=== PATIENT | female | born 1970 | race Native Hawaiian/Other Pacific Islander ===

== ENCOUNTER 2024-05-21 12:05 | Emergency (ER) | payer OTHER ==
[~2024-05-21] VITALS: Ht 165.1 cm; Wt 79.6 kg
[2024-05-21] MEDS: oseltamivir phos 75mg capsule PO ONE (14:46)
[2024-05-21] MEDS: acetaminophen 325mg tablet PO ONE (14:48)
[2024-05-21] MEDS: ketorolac trometh 15mg/ml vial 15 MG/ML ML IM ONE (14:48)
[2024-05-21] MEDS ORDERED: TAM75C PO (15:03)
[2024-05-21] MEDS ORDERED: ALBU18HF2 INH (15:03)
[2024-05-21] MEDS ORDERED: IBUP-1984 PO (15:03)
[2024-05-21 15:11] VITALS: BP 112/62; PULSE 92; RESP 18; TEMP 99.9; O2SAT 97
== END 2024-05-21 15:14 | disposition home or self-care (01) ==
LOC: ER 12:06
DX: J11.1 Influenza due to unidentified influenza virus with other respiratory manifestations (principal)
CPT/HCPCS: 87502; 87503; 96372; 99283; J1885

== ENCOUNTER 2024-07-20 10:28 | Emergency (ER) | payer BC, OTHER ==
[~2024-07-20] VITALS: Ht 165.1 cm; Wt 83.0 kg
[~2024-07-20 10:28] MED LIST: ALBU18HF2 INH
[2024-07-20 10:32] VITALS: TEMP 98.4
[2024-07-20 10:54] LABS: BASOPHILS % (AUTO) 0.4 % (0-1); EOSINOPHILS # (AUTO) 0.1 X10'3 (0-0.9); HEMATOCRIT 36.8 % (35.0-45.0); HEMOGLOBIN 12.6 g/dl (12.0-16.0); LYMPHOCYTES # (AUTO) 1.8 X10'3 (1.1-4.8); MEAN CORPUSCULAR HEMOGLOBIN 29.9 PG (27.0-31.0); MEAN CORPUSCULAR HGB CONC 34.3 g/dL (33.0-36.5); MEAN CORPUSCULAR VOLUME 87.2 FL (78-98); MEAN PLATELET VOLUME 6.6 FL (7.4-10.4); MONOCYTES # (AUTO) 0.3 X10'3 (0-0.9); MONOCYTES % (AUTO) 7.3 % (2-12); NEUTROPHILS # (AUTO) 2.1 X10'3 (1.8-7.7); NEUTROPHILS % (AUTO) 49.3 % (42-75); PLATELET COUNT 248 X10'3 (140-440); RED BLOOD COUNT 4.22 X10'6 (4.20-5.60); RED CELL DISTRIBUTION WIDTH 14.4 % (11.5-14.5); WHITE BLOOD COUNT 4.4 X10'3 (4.5-11.0)
[2024-07-20 11:07] LABS: ALANINE AMINOTRANSFERASE 22 U/L (12-78); ALBUMIN 3.4 G/DL (3.4-5.0); ALBUMIN/GLOBULIN RATIO 0.8 (1.1-1.5); ALKALINE PHOSPHATASE 71 IU/L (46-116); ANION GAP 8 (8-16); ASPARTATE AMINO TRANSFERASE 28 U/L (10-37); BILIRUBIN,TOTAL 0.2 MG/DL (0.1-1.0); BLOOD UREA NITROGEN 25 MG/DL (7-18); BUN/CREATININE RATIO 40.3 (10.0-20.0); CALCIUM 8.4 MG/DL (8.5-10.1); CHLORIDE 108 MMOL/L (99-107); CREATININE 0.62 MG/DL (0.40-0.90); GLUCOSE 98 MG/DL (70-104); POTASSIUM 4.1 MMOL/L (3.5-5.1); SODIUM 142 MMOL/L (135-145); TOTAL PROTEIN 7.6 G/DL (6.4-8.2); eCRCL 92 ML/MIN; eGFR > 90 ML/MIN
[2024-07-20 11:14] LABS: PRO BRAIN NATRIURETIC PEPTIDE < 30 PG/ML (0-125)
[2024-07-20 12:00] VITALS: BP 104/70; PULSE 56; O2SAT 98
[2024-07-20 12:12] VITALS: RESP 14
[2024-07-20] MEDS: ketorolac trometh 15mg/ml vial 15 MG/ML ML IM ONE (12:12)
== END 2024-07-20 12:14 | disposition home or self-care (01) ==
LOC: ER 10:28
DX: M54.10 Radiculopathy, site unspecified (principal); R06.00 Dyspnea, unspecified; Z79.899 Other long term (current) drug therapy
CPT/HCPCS: 36415; 71045; 80053; 83880; 84484; 85025; 93005; 96372; 99285; J1885

== ENCOUNTER 2024-09-08 14:12 | Emergency (ER) | payer MEDICAID ==
[~2024-09-08] VITALS: Ht 165.1 cm; Wt 89.8 kg
--- NOTE | 2024-09-08 14:33 | Physician Documentation ---
History of Present Illness ~ Chief Complaint: Cold, cough & congestion Stated Complaint: URI Time Seen by MD: 15:19 OK to notify your PCP?: Yes Source: patient Mode of Arrival: POV Exam Limitations: no limitations HPI 54-year-old female presenting for upper respiratory infection with cold cough and congestion. She had a productive cough while in triage. She was seen at [facility] this past Tuesday and diagnosed with a URI and given no prescription medications. She has been using TheraFlu and Tylenol at home and feels that she is getting worse. She noticed having right ear fullness which started about a week prior to her symptoms. Reports having painful chest and chest tightness. States she used to smoke cigarettes Medication Reconciliation Allergies: Coded Allergies: No Known Allergies (Unverified , 09/08/24) Scheduled Albuterol Sulfate (Ventolin Hfa), 2 PUFFS INH Q4HPRN Prednisone (Prednisone), 1 TAB PO BID Scheduled PRN albuterol inhaler (Pro-Air Inhaler), 2 PUFFS INH Q4HPRN PRN for wheezing Past Medical History Past Medical History: No Pertinent History Past Surgical History: no surgical history Drug Use: none Lives In: Home Review of Systems All Other Systems at this time: Reviewed and Negative Physical Exam Vital Signs: RN Vital Signs have been reviewed: Yes, Temperature: 97.6, Heart Rate: 59, Respiratory Rate: 16, BP: 118/74, Pulse Oximetry: 98, Weight: 89.800 Oxygen Flow Rate: 0 Physical Exam General: Alert, no apparent distress. HEENT: PERRL, EOMI, no injection, moist mucous membranes. Sinuses tender to palpation bilaterally. left TM clear, no erythema. Right TM is clear but bulging, no erythema. Neck: Full range of motion. Respiratory: Diminished lung sounds Chest: No accessory muscle use. Lungs clear to auscultation bilaterally. Cardiovascular: Regular rate and rhythm, no murmurs. Progress Results/Orders Results/Orders Orders - THUAN HARVEY NP Svn Treatment (09/08/24 ) Completed Orders - THUAN HARVEY PROSTHETIC AIDE Ipratropium/Albuterol Nebule (Ipratrop/A (09/08/24 15:45) Medications Received in ER Medications (Trade) Dose Ordered Sig/Nayeli Route PRN Reason Start Time Stop Time Status Last Admin Dose Admin (ipratrop/ albuterol 0.5-3(2.5) MG/3ml nebule) 3 ml ONCE ONCE NEB 09/08/24 15:45 09/08/24 15:46 DC 09/08/24 15:51 3 ML Vital Signs 09/08/24 09/08/24 09/08/24 09/08/24 14:18 15:52 15:57 16:05 Temp 97.6 Pulse 59 59 59 Resp 16 18 20 16 B/P (MAP) 118/74 Pulse Ox 98 95 99 O2 Delivery Room Air* Room Air* Room Air O2 Flow Rate 0 0 0 FiO2 21 21 09/08/24 16:07 Temp 97.6 Pulse 60 Resp 16 B/P (MAP) 122/65 Pulse Ox 98 Medical Decision Making Findings Currently suspecting upper respiratory virus. Treat the patient with a bronchodilator and a short dose of prednisone as her lung sounded very tight when I 1st listened to them and after receiving an SVN treatment I did not notice improvement.. Differential Dx:Considerations: Include: Allergic rhinitis, Influenza, Otitis media, Peritonsillar abscess, Pharyngitis-Diphtheria, Pharyngitis-Streptoccal, Pharyngitis-Viral, Pneumonia, Pnuemonitis, Sinusitis, URI, Other Departure Disposition: 01 HOME / SELF CARE / HOMELESS Impression: Primary Impression: Acute respiratory infection Condition: Stable Discharge Instructions: Upper Respiratory Infection, Adult Referrals: NO PRIMARY CARE PROVIDER (PCP) Prescriptions Prednisone (Prednisone) 10 Mg Tablet 1 TAB PO BID for 5 Days, #10 TAB Prov: THUAN HARVEY NP 09/08/24 albuterol inhaler (Pro-Air Inhaler) 8.5 Gm Inhaler 2 PUFFS INH Q4HPRN PRN for wheezing for 30 Days, #18 GM Prov: THUAN HARVEY PROSTHETIC AIDE 09/08/24 Additional Comment Medical Screen Exam This patient recieved a medical screening examination. After reviewing the individual's medical complaints with presenting symptoms and performing an appropriate physical examination, it was determined that no emergency medical condition is present. This individual is also not a women having contr actions. Signature Scribe Signature: g Attestation: The note accurately reflects work and decisions made by me.Thuan Parsons NP 09/08/24 18:24 [employer] September 08, 2024 14:33 THUAN HARVEY PROSTHETIC AIDE September 08, 2024 15:45
[2024-09-08] MEDS: ipratropium/albuterol 3ml nebule NEB ONE (15:51)
[2024-09-08 15:52] VITALS: PULSE 59; RESP 18; O2SAT 95
[2024-09-08] MEDS ORDERED: ALBU8HFA INH (15:52)
[2024-09-08] MEDS ORDERED: PRED10TA23 PO (15:52)
[2024-09-08 15:57] VITALS: PULSE 59; RESP 20; O2SAT 99
[2024-09-08 16:07] VITALS: BP 122/65; PULSE 60; RESP 16; TEMP 97.6; O2SAT 98
== END 2024-09-08 16:08 | disposition home or self-care (01) ==
LOC: ER 14:12
DX: J22 Unspecified acute lower respiratory infection (principal); Z87.891 Personal history of nicotine dependence
CPT/HCPCS: 94640; 94760; 99283

== ENCOUNTER 2024-09-20 11:37 | Emergency (ER) | payer MEDICAID ==
[~2024-09-20] VITALS: Ht 165.1 cm; Wt 89.1 kg
[~2024-09-20 11:37] MED LIST changes: +ALBU8HFA INH
[2024-09-20 11:39] VITALS: BP 124/77; PULSE 70; TEMP 96.8; O2SAT 96
--- NOTE | 2024-09-20 12:30 | Physician Documentation ---
History of Present Illness ~ Chief Complaint: Knee Pain Stated Complaint: R KNEE PAIN Time Seen by MD: 11:56 Primary Medical Doctor: NONE HPI This is a 54-year-old female who presents with right knee pain after playing a game of softball and this noticed after stepping out of a van after traveling [place] approximately [address] Patient reports no known injury to the knee. Patient reports no other acute symptoms or concerns. Tetanus witin 5 years: Yes Medication Reconciliation Allergies: Coded Allergies: No Known Allergies (Unverified , 09/08/24) Scheduled Albuterol Sulfate (Ventolin Hfa), 2 PUFFS INH Q4HPRN Ibuprofen (Ibuprofen), 1 TAB PO Q8H Scheduled PRN albuterol inhaler (Pro-Air Inhaler), 2 PUFFS INH Q4HPRN PRN for wheezing Discontinued Medications Prednisone (Prednisone), 1 TAB PO BID Discontinued Reason: Auto Discontinued Past Medical History Past Medical History: No Pertinent History Past Surgical History: no surgical history Drug Use: none Lives In: Home Review of Systems ROS Right knee pain as stated above in the HPI, otherwise all systems are reviewed and negative. Physical Exam Vital Signs: Temperature: 96.8, Source: Temporal, Heart Rate: 70, Respiratory Rate: 18, BP: 124/77, Pulse Oximetry: 96, Weight: 89.090 Oxygen Flow Rate: 0 Physical Exam VITALS: Reviewed and as above. GENERAL: Alert, nontoxic appearing, no apparent distress. RESPIRATORY: No increased work of breathing, no respiratory distress, speaking in full clear sentences MUSCULOSKELETAL: Tenderness to palpation to anterior of right lower extremity just proximal and just distal to knee, no erythema, no ecchymosis, not hot to the touch, no tenderness to palpation to posterior aspect of right lower ex tremity, mild amount of edema to medial aspect of right knee otherwise no significant swelling to right lower extremity as compared to the left lower extremity Progress Results/Orders Results/Orders Orders - RUBIO TREVIÑO Ortho Orders (09/20/24 ) Completed Orders - RUBIO TREVIÑO Ketorolac Trometh 15mg/Ml Vial (Toradol (09/20/24 12:55) Vital Signs 09/20/24 09/20/24 11:39 13:07 Temp 96.8 Pulse 70 Resp 18 16 B/P (MAP) 124/77 Pulse Ox 96 O2 Flow Rate 0 EKG/XRAY/CT/US/VASC/MRI Bone/Soft Tissue X-Ray (Ext.) : Additional Comment EXAM: DI KNEE, COMP 4 VW MIN HISTORY: KNEE PAIN COMPARISON: None TECHNIQUE: AP, lateral, and notch views of the right knee were performed. FINDINGS: No acute fracture is identified about the right knee. There are tricompartmental marginal osteophytes without significant joint space narrowing. There is a quadriceps tendon insertion enthesophyte on the superior pole of the patella. Moderate to large joint effusion accumulates in the suprapatellar pouch. IMPRESSION: 1. Degenerative changes of the right knee without evidence of acute fracture. 2. Moderate to large right knee effusion may indicate internal derangement. Consider follow-up noncontrast MRI of the right knee for further evaluation of the ligaments and menisci. Electronically Signed by:CHRISTO GILL MD Date & Time: 09/20/241324 Dictated by: CHRISTO GILL MD Dictation date and time: 09/20/241324 I have reviewed and agree with the radiology report. I have reviewed and interpreted the imaging as: No fracture or dislocation Medical Decision Making Findings This 54-year-old female presented with right knee pain and swelling following a softball tournament yesterday that she 1st noticed when getting out of the van after returning from the [place] approximately 3-4 hours away, physical exam significant for tenderness to the anterior aspect of the knee and some swelling to the medial aspect of the knee though otherwise range of motion intact in limb was neurovascularly intact. It was reassuring the limb was not significantly swollen distal to the injury this suggest DVT and the knee was not erythematous or exquisitely tender to the touch to suggest septic joint. X-ray of the knee demonstrated no fracture or dislocation though did demonstrate an effusion, suspects this is a soft tissue injury patient will require outpatient follow up for further imaging, patient is otherwise well-appearing with remaining physical exam benign, medicated for pain with adequate response, patient will be placed on crutches with a rest, ice compression, and elevation strategy. Knee Diff Dx:Considerations: Include: Abrasion, Arthritis, Contusion, DJD, Fracture-femur, Fracture-fibula, Fracture-patella, Fracture-tibia, Gout, Hematoma, Laceration, Meniscus injury, Neurovascular injury, Septic, Sprain, Sprain-MCL, Sprain-LCL, Sprain-ACL, Sprain-PCL, Other (DVT) Departure Disposition: 01 HOME / SELF CARE / HOMELESS Impression: Primary Impression: Leg pain, anterior Qualified Codes: M79.604 - Pain in right leg Condition: Improved Discharge Instructions: Acute Knee Pain, Adult, RICE Therapy for Routine Care of Injuries Additional Instructions: Please use the crutches to help rest the leg, you may use ibuprofen and or Tylenol as directed by the [id number] packaging as needed for pain. Please see the attached home care instructions for caring for your injury. Please follow up with your primary care provider in the next few days. Please return to the emergency department for any new or worsening concerning symptoms. Departure Forms: Excuse form Work or School Excused From: Work Excuse beginning now through the following date: Sep 23, 2024 Referrals: NO PRIMARY CARE PROVIDER (PCP) Prescriptions Ibuprofen (Ibuprofen) 800 Mg Tablet 1 TAB PO Q8H for pain for 10 Days, #30 TAB 0 Refills Prov: RUBIO TREVIÑO 09/20/24 Education Educated: Patient Educated regarding: diagnosis, treatment, prognosis, need for follow up Signature Scribe Signature: No scribe Attestation: The note accurately reflects work and decisions made by me.ELIF Quintanilla 09/20/24 21:26 RUBIO TREVIÑO Sep 20, 2024 12:30
[2024-09-20] MEDS ORDERED: IBUP-1986 PO (12:53)
[2024-09-20 13:07] VITALS: RESP 16
[2024-09-20] MEDS: ketorolac trometh 15mg/ml vial 15 MG/ML ML IM ONE (13:07)
--- NOTE | 2024-09-20 13:27 | RADIOLOGY REPORT ---
EXAM: DI KNEE, COMP 4 VW MIN HISTORY: KNEE PAIN COMPARISON: None TECHNIQUE: AP, lateral, and notch views of the right knee were performed. FINDINGS: No acute fracture is identified about the right knee. There are tricompartmental marginal osteophyte s without significant joint space narrowing. There is a quadriceps tendon insertion enthesophyte on t he superior pole of the patella. Moderate to large joint effusion accumulates in the suprapatellar p ouch. IMPRESSION: 1. Degenerative changes of the right knee without evidence of acute fracture. 2. Moderate to large right knee effusion may indicate internal derangement. Consider follow-up nonco ntrast MRI of the right knee for further evaluation of the ligaments and menisci.
== END 2024-09-20 13:28 | disposition home or self-care (01) ==
LOC: ER 11:37
DX: M25.561 Pain in right knee (principal); Z79.899 Other long term (current) drug therapy
CPT/HCPCS: 73564; 96372; 99283; J1885